=== PATIENT | female | born 1990 | race Caucasian/White ===

== ENCOUNTER 2022-02-14 11:22 | Emergency (ER) | payer MEDICAID ==
[2022-02-14 12:35] LABS: Bilirubin Small (Negative); Blood, Urine Trace (Negative); Clarity Clear (Clear); Glucose, Urine (Dipstick) Negative (Negative); Ketone, Urine Negative (Negative); Leukocyte Negative (Negative); Nitrite Negative (Negative); Protein, Urine (Dipstick) Negative (Neg-Trace); Specific Gravity, Urine 1.025 (1.005-1.030)
[2022-02-14 12:38] LABS: Bacteria/HPF None Seen HPF (None Seen); RBC/HPF 0-3 HPF (0-3); Squamous Epithelial 0-3 HPF (0-3); WBC/HPF None Seen HPF (0-3)
== END 2022-02-14 13:13 | disposition home or self-care (01) ==
LOC: BURERS 11:22
DX: O20.0 Threatened abortion (principal)
CPT/HCPCS: 36415; 81003; 81015; 84702; 99284

== ENCOUNTER 2023-04-07 16:36 | Emergency (ER) | payer MEDICAID ==
[2023-04-07] MEDS ORDERED: Acetaminophen 500 MG TAB ONE (17:12)
== END 2023-04-07 17:11 | disposition home or self-care (01) ==
LOC: BURERS 16:36
DX: O9A.211 Injury, poisoning and certain other consequences of external causes complicating pregnancy, first trimester (principal); S09.22XA Traumatic rupture of left ear drum, initial encounter; X58.XXXA Exposure to other specified factors, initial encounter; Z3A.12 12 weeks gestation of pregnancy
CPT/HCPCS: 99282

== ENCOUNTER 2025-09-21 13:02 | Emergency (ER) | payer MEDICAID ==
[2025-09-21] MEDS ORDERED: Ondansetron PF 4 MG/2 ML Vial ONE (13:30)
[2025-09-21 13:41] LABS: #Basophils 0.1 thou/uL (0.0-0.2); #Eosinophils 0.1 thou/uL (0.0-0.7); #Lymphocytes 3.5 thou/uL (1.20-3.40); #Monocytes 0.6 thou/uL (0.11-0.59); #Neutrophils 5.7 thou/uL (1.40-6.50); %Basophils 0.5 % (0.0-1.0); %Eosinophils 1.4 % (0.0-10.0); %Lymphocytes 34.9 % (21.0-51.0); %Monocytes 6.0 % (0.0-10.0); %Neutrophils 57.2 % (42.0-75.0); Hematocrit 43.9 % (36.0-47.0); Hemoglobin 13.8 g/dL (12.0-16.0); Mean Corpuscular Hemoglobin 28.8 pg (27.0-31.0); Mean Corpuscular Volume 91.4 fl (78.0-98.0); Platelet Count 303 10x3/uL (130-400); Red Blood Cell (RBC) Count 4.80 mill/uL (4.20-5.40); White Blood Cell (WBC) Count 10.0 10x3/uL (4.8-10.8)
[2025-09-21 13:51] LABS: Glucose, Urine (Dipstick) Negative (Negative); Leukocyte Negative (Negative); Protein, Urine (Dipstick) Negative (Neg-Trace); Specific Gravity, Urine 1.020 (1.005-1.030)
[2025-09-21 14:02] LABS: ALT (SGPT) 20 U/L (Less than 34); AST (SGOT) 20 U/L (11-34); Albumin 4.3 g/dL (3.1-4.5); Alkaline Phosphatase 120 U/L (40-110); Anion Gap 15 mmol/L (10-20); BUN (Urea Nitrogen) 16 mg/dL (7.0-18.7); Bilirubin, Total 0.2 mg/dL (0.3-1.2); Calc. Creatinine Clearance 0 mL/min (70-130); Calcium 9.0 mg/dL (7.8-10.44); Carbon Dioxide 24 mmol/L (22-29); Chloride 105 mmol/L (98-107); Globulin 3.0 g/dL (2.4-3.5); Glucose 86 mg/dL (70-105); Lipase 18 U/L (8-78); Potassium 3.8 mmol/L (3.5-5.1); Sodium 140 mmol/L (136-145)
[2025-09-21 14:04] LABS: Bacteria/HPF None Seen HPF (None Seen); CAUTI Indications for Culture Dysuria,urgency,freq; RBC/HPF None Seen HPF (0-3); Urine Culture Reflex No No; WBC/HPF None Seen HPF (0-3)
== END 2025-09-21 18:53 | disposition home or self-care (01) ==
LOC: BURERS 13:02
DX: R10.11 Right upper quadrant pain (principal)
CPT/HCPCS: 74177; 80053; 81001; 83690; 85025; J2270; J2405; J3010; Q0162